=== PATIENT | male | born 1950 | race Caucasian/White ===

== ENCOUNTER 2022-04-06 14:06 | Emergency (ER) | payer MEDICARE ==
[~2022-04-06] VITALS: Ht 182.9 cm; Wt 115.0 kg
[2022-04-06] VITALS (13 sets, daily range): BP systolic 102–130; BP diastolic 49–75
[2022-04-06] MEDS ORDERED: BACTRIM DS1 TAB PO (18:22)
== END 2022-04-06 19:15 | disposition home or self-care (01) ==
LOC: ED 14:06
DX: S61.210A Laceration without foreign body of right index finger without damage to nail, initial encounter (principal); I10 Essential (primary) hypertension; F17.200 Nicotine dependence, unspecified, uncomplicated; W26.8XXA Contact with other sharp object(s), not elsewhere classified, initial encounter; Y93.89 Activity, other specified; Y92.000 Kitchen of unspecified non-institutional (private) residence as the place of occurrence of the external cause